=== PATIENT | female | born 1965 | race Caucasian/White ===

== ENCOUNTER 2025-07-08 09:54 | Day surgery (SDC) | payer OTHER ==
[~2025-07-08] VITALS: Ht 162.6 cm; Wt 135.7 kg
[~2025-07-08 09:54] MED LIST: ALBU8.5H INH; FURO20TA2 PO; METF500T13 PO; MONT10TA97 PO; OMEP-173 PO; SIMV40TA20 PO; SYNT150T PO
[2025-07-08] MEDS ORDERED: MIDAZOLAM INJ 2 MG/2 ML VIAL As Ordered ONE (09:58)
[2025-07-08] MEDS ORDERED: KETOROLAC 30 MG/ML 1 ML VIAL As Ordered ONE (09:59)
[2025-07-08] MEDS ORDERED: LIDOCAINE 2% 100 MG/5 ML SDV (FOR ANES.) As Ordered ONE (09:59)
[2025-07-08] MEDS ORDERED: dexAMETHasone 4 MG/ML 1 ML VIAL As Ordered ONE (09:59)
[2025-07-08] MEDS ORDERED: ONDANSETRON 4MG 2ML VIAL As Ordered ONE (09:59)
[2025-07-08 10:56] LABS: PLATELET COUNT, AUTOMATED 317 10^3/uL (150-450)
[2025-07-08] MEDS: LR 1,000 ML IV SCH (11:21)
[2025-07-08] MEDS: LEVALBUTEROL 1.25 MG 0.5ML CONCENTRATE NEB NEB ONE (11:21)
[2025-07-08] MEDS ORDERED: ACETAMINOPHEN 1000MG/100ML IV BAG As Ordered ONE (12:28)
[2025-07-08] MEDS ORDERED: ONDANSETRON 4MG 2ML VIAL IV PRN (12:40)
[2025-07-08] MEDS ORDERED: MORPHINE 4 MG/ML 1 ML VIAL IV PRN (12:40)
[2025-07-08 13:45] VITALS: BP 126/68; TEMP 97.4; O2SAT 99
== END 2025-07-08 13:50 | disposition home or self-care (01) ==
LOC: M SDC 09:54
PROVIDERS: ATTEND Specialist
DX: N95.0 Postmenopausal bleeding (principal); C54.1 Malignant neoplasm of endometrium; E11.9 Type 2 diabetes mellitus without complications; J44.9 Chronic obstructive pulmonary disease, unspecified; I10 Essential (primary) hypertension; E03.9 Hypothyroidism, unspecified; E78.00 Pure hypercholesterolemia, unspecified; Z79.899 Other long term (current) drug therapy; Z79.84 Long term (current) use of oral hypoglycemic drugs; Z79.890 Hormone replacement therapy; Z98.51 Tubal ligation status
CPT/HCPCS: 36415; 58558; 85027; 88305; J0131; J1100; J1885; J2250; J2405; J3010